=== PATIENT | male | born 2000 | race Hispanic/Latino ===

== ENCOUNTER 2021-10-06 02:40 | Emergency (ER) | payer SELFPAY ==
--- OUTSIDE RECORDS SUMMARY | 2021-10-06 02:44 | XMS REPORT | Continuity of Care Document ---
:2000 Author Organization [facility] t Address [address] [place] [address] Care Team Providers Name Role Phone Alyson Attending Clinician Unavailable Payers Payer Name Policy Type Policy Number Effective Date Expiration Date S ource Problems This patient has no known problems. Allergies, Adverse Reactions, Alerts This patient has no known allergies or adverse reactions. Medications This patient has no known medications. Procedures This patient has no known procedures. Encounters Start End Encounter Admission Attending Care Care Encounter Source Date/Time Date/Time Type Type Clinicians Facility Department ID 2021-05-19 2021-05-19 Outpatient R HAWA Shields [facility] [id number] [facility] 14:02:00 14:03:00 Staci [id number] 2021-05-15 2021-05-[address] [facility] [id number] 00:00:00 00:00:00 Staci [id number] Komal Trevizo Results Test Description Test Time Test Comments Results Result Comments Source CT Sinuses WO Con Keaton e: PATRIZIA KATE : 2000 Sex: M CH I [facility] [place] [place] Pt Name: PATRIZIA KATE [address] [facility] Phys: [place] [address] : 2000 Age: 21 SEX:M Exam Date: 05/19/21 Status: REG CLI Acct: [id number] Loc: [facility] Pt Unit #: [id number] Report #: [id number] CC: AlysonStaci pittman DO CAT SCAN REPORT Order # Category/Exam [id number] CT/CT Sinuses WO Con ([id number]): . Results EXAM: CT sinuses without contrast: INDICATIONS: Follow-up right sphenoid lesion COMPARISON: MRI brain 05/08/2021 FINDINGS: Paranasal sinuses are well aerated and are clear. No paranasal sinus mucosal disease. Mastoid air cells are clear. There is a lucent lesion involving the right sphenoid which corresponds to the area of high T2 signal seen on MRI. 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 Dr. Lee reviewed exam and is in agreement. 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 Reported By: Corey Allen MD Electronically Signed Date/Time: 05/19/21 9589 Technologist: IVA Dictated Date/Time: 05/19/21 1446 Transcribed Date/Time:
--- NOTE | 2021-10-06 05:03 | ER ---
Nurse's Notes [facility] Name: Colten Gómez Age: 21 yrs Sex: Male : 2000 Arrival Date: 10/06/2021 Time: 02:45 Bed 8 Private MD: Diagnosis: Headache Presentation: 10/06 02:58 Chief complaint: Patient states: HEADACHE THAT STARTED AT 1AM, HE ADMITS TO HAVING [facility] THESE HEADACHES FOR QUITE SOME TIME NOW. Coronavirus screen: Vaccine status: Patient reports being unvaccinated. headache. Ebola Screen: Patient negative for fever greater than or equal to 101.5 degrees Fahrenheit, and additional compatible Ebola Virus Disease symptoms. Initial Sepsis Screen: Does the patient meet any 2 criteria? No. Patient's initial sepsis screen is negative. Does the patient have a suspected source of infection? No. Patient's initial sepsis screen is negative. Risk Assessment: Do you want to hurt yourself or someone else? Patient reports no desire to harm self or others. Onset of symptoms was October 06, 2021. 02:58 Method Of Arrival: Ambulatory [facility] 02:58 Acuity: MIGUE 4 [facility] Triage Assessment: 03:00 Headache History: The patient has had previous headaches and this one is similar to [facility] previous episodes. General: Appears in no apparent distress. uncomfortable, Behavior is calm, cooperative, appropriate for age. Pain: Complains of pain in face Pain currently is 6 out of 10 on a pain scale. Pain began 2 hours ago. Also complains of no other associated symptoms. Neuro: No deficits noted. Historical: - Allergies: 03:00 NKDA; [facility] - Home Meds: 03:00 None [Active]; [facility] - PMHx: 03:00 None; [facility] - Immunization history:: Adult Immunizations up to date. - Social history:: Smoking status: Patient denies any tobacco usage or history of. Screenin:38 Abuse screen: Denies threats or abuse. Denies injuries from another. Nutritional kd3 screening: No deficits noted. Tuberculosis screening: No symptoms or risk factors identified. 03:40 Fall Risk None identified. kd3 Assessment: 03:38 General: Appears in no apparent distress. Behavior is calm, cooperative. Pain: kd3 Complains of pain in headache. Neuro: Level of Consciousness is awake, alert, obeys commands, Oriented to person, place, time, situation. Respiratory: Airway is patent Trachea midline Respiratory effort is even, unlabored. 03:58 Reassessment: Patient states feeling better. Pain: Pain currently is 2 out of 10 on a as6 pain scale. Vital Signs: 02:58 BP 139 / 69; Pulse 68; Resp 18; Temp 98.2; Pulse Ox 100% on R/A; Weight 82.1 kg; Height [facility] 5 ft. 8 in. (172.72 cm); Pain 6/10; 03:58 BP 124 / 81; Pulse 70; Resp 18 S; Pulse Ox 100% on R/A; as6 05:08 BP 125 / 71; Pulse 66; Resp 20 S; Pulse Ox 100% on R/A; as6 02:58 Body Mass Index 27.52 (82.10 kg, 172.72 cm) 1 ED Course: 02:45 Patient arrived in ED. ja2 03:00 Triage completed. 1 03:00 Arm band placed on right wrist. 1 03:02 Candace Cha, LYNDSAY is Primary Nurse. kd3 03:02 Primary Nurse role handed off by Candace Cha RN as6 03:02 Dwaine Alanis RN is Primary Nurse. as6 03:07 Kev White MD is Attending Physician. kdr 03:40 Patient has correct armband on for positive identification. kd3 03:47 CT Head Brain wo Cont In Process Unspecified. EDMS 05:08 No provider procedures requiring assistance completed. Patient did not have IV access as6 during this emergency room visit. Administered Medications: No medications were administered Medication: 03:40 VIS not applicable for this client. kd3 Outcome: 05:02 Discharge ordered by . kdr 05:08 Discharged to home ambulatory. as6 05:08 Condition: stable 05:08 Discharge instructions given to patient, Instructed on discharge instructions, follow up and referral plans. Demonstrated understanding of instructions, follow-up care. 05:18 Patient left the ED. as6 Signatures: Dispatcher [employer] EDMS Kev White MD MD kdr Alexander, Jessica 2 Dwaine Alanis, LYNDSAY RN as6 Candace Cha RN RN 3 Deena Fitzpatrick RN RN bh1
--- NOTE | 2021-10-06 05:04 | EDPHYS ---
Physician Documentation [facility] Name: Colten Gómez Age: 21 yrs Sex: Male : 2000 Arrival Date: 10/06/2021 Time: 02:45 Bed 8 Private MD: ED Physician Kev White HPI: 10/06 04:25 This 21 yrs old Male presents to ER via Ambulatory with complaints of kdr Headache, Neck Problem. 04:25 The patient complains of pain to the forehead. The patient describes the headache as kdr aching, intermittent, a pressure. Onset: The symptoms/episode began/occurred suddenly, this morning. Associated signs and symptoms: The patient has no apparent associated signs or symptoms. Severity of symptoms: At its worst the pain was moderate, severe, just prior to arrival, in the emergency department the pain has improved, markedly. Headache History: The patient has had previous headaches and this one is similar to previous episodes, and this one is more severe than previous episodes. The symptoms are alleviated by nothing. the symptoms are aggravated by nothing. The patient has experienced similar episodes in the past, multiple times, Patient has had intermittent headaches since the first of the year. He states it normally does come and go. He states that he has headaches nearly every day. It was more persistent and severe. He denies any associated symptoms including photophobia, tinnitus, vertigo, other concerning symptoms patient is nontoxic in the ED. The patient has not recently seen a physician. Historical: - Allergies: 03:00 NKDA; bh1 - Home Meds: 03:00 None [Active]; bh1 - PMHx: 03:00 None; 1 - Immunization history:: Adult Immunizations up to date. - Social history:: Smoking status: Patient denies any tobacco usage or history of. ROS: 04:25 Constitutional: Negative for fever, chills, and weight loss, Eyes: Negative for injury, kdr pain, redness, and discharge, ENT: Negative for injury, pain, and discharge, Cardiovascular: Negative for chest pain, palpitations, and edema, Respiratory: Negative for shortness of breath, cough, wheezing, and pleuritic chest pain, Abdomen/GI: Negative for abdominal pain, nausea, vomiting, diarrhea, and constipation, Back: Negative for injury and pain, : Negative for injury, bleeding, discharge, and swelling. 04:25 Eyes: Negative for acute changes, blurry vision, discharge, foreign body sensation, icterus, injury or acute deformity, itching, matting, pain, photophobia, redness, sunken appearance, swelling, tearing, vision loss, visual disturbance. 04:25 Neck: Positive for pain at rest, of the face and right lateral aspect of neck. Exam: 04:25 Constitutional: This is a well developed, well nourished patient who is awake, alert, kdr and in no acute distress. Head/Face: Normocephalic, atraumatic. Eyes: Pupils equal round and reactive to light, extra-ocular motions intact. Lids and lashes normal. Conjunctiva and sclera are non-icteric and not injected. Cornea within normal limits. Periorbital areas with no swelling, redness, or edema. Neck: Trachea midline, no thyromegaly or masses palpated, and no cervical lymphadenopathy. Supple, full range of motion without nuchal rigidity, or vertebral point tenderness. No Meningismus. Chest/axilla: Normal chest wall appearance and motion. Nontender with no deformity. No lesions are appreciated. Cardiovascular: Regular rate and rhythm with a normal S1 and S2. No gallops, murmurs, or rubs. Normal PMI, no JVD. No pulse deficits. Respiratory: Lungs have equal breath sounds bilaterally, clear to auscultation and percussion. No rales, rhonchi or wheezes noted. No increased work of breathing, no retractions or nasal flaring. Back: No spinal tenderness. No costovertebral tenderness. Full range of motion. Skin: Warm, dry with normal turgor. Normal color with no rashes, no lesions, and no evidence of cellulitis. MS/ Extremity: Pulses equal, no cyanosis. Neurovascular intact. Full, normal range of motion. Neuro: Awake and alert, GCS 15, oriented to person, place, time, and situation. Cranial nerves II-XII grossly intact. Motor strength 5/5 in all extremities. Sensory grossly intact. Cerebellar exam normal. Normal gait. Psych: Awake, alert, with orientation to person, place and time. Behavior, mood, and affect are within normal limits. Vital Signs: 02:58 BP 139 / 69; Pulse 68; Resp 18; Temp 98.2; Pulse Ox 100% on R/A; Weight 82.1 kg; Height [facility] 5 ft. 8 in. (172.72 cm); Pain 6/10; 03:58 BP 124 / 81; Pulse 70; Resp 18 S; Pulse Ox 100% on R/A; as6 05:08 BP 125 / 71; Pulse 66; Resp 20 S; Pulse Ox 100% on R/A; as6 02:58 Body Mass Index 27.52 (82.10 kg, 172.72 cm) [facility] MDM: 04:25 Data reviewed: vital signs, nurses notes, lab test result(s). kdr 05:02 Patient medically screened. kdr 10/06 03:22 Order name: CT Head Brain wo Cont kdr Administered Medications: No medications were administered Disposition Summary: 10/06/21 05:02 Discharge Ordered Location: Home kdr Problem: an acute exacerbation kdr Symptoms: have improved kdr Condition: Stable kdr Diagnosis - Headache kdr Followup: kdr - With: Private Physician - When: 2 - 3 days - Reason: If symptoms return, Further diagnostic work-up, Recheck today's complaints, Continuance of care, Re-evaluation by your physician Discharge Instructions: - Discharge Summary Sheet kdr - General Headache Without Cause, [id number] kdr Forms: - Medication Reconciliation Form kdr - Thank You Letter kdr Signatures: Dispatcher [employer] Kev Alonso MD MD kdr Deena Fitzpatrick RN RN 1
[2021-10-06 05:23] VITALS: TEMP 98.2; O2SAT 100
[2021-10-06 05:26] VITALS: BP 125/71
--- NOTE | 2021-10-06 10:13 | RAD REPORT ---
EXAM DESCRIPTION: CT Head/Brain Without Contrast CLINICAL HISTORY: Headache, tension-type COMPARISON: None. TECHNIQUE: Head/brain axial images acquired without contrast. Coronal and sagittal reformats created . Exam performed according to departmental dose-optimization program which includes automated exposur e control, adjustment of mA and/or kV according to patient size, and/or use of iterative reconstructi on technique. FINDINGS: No midline shift, mass effect, intracranial hemorrhage, or hydrocephalus. Brain parenchyma unremarkable. Paranasal sinuses clear. Mastoid air cells clear. No skull fracture or significant skull lesion. IMPRESSION: Unremarkable CT head/brain without contrast. Electronically signed by: Rj Lovelace MD 10/06/2021 4:35 AM CDT Due to temporary technical issues with the PACS/Fluency reporting system, reports are being signed by the in house radiologists without review as a courtesy to insure prompt reporting. The interpreting radiologist is fully responsible for the content of the report.
== END 2021-10-06 05:18 | disposition home or self-care (01) ==
LOC: ER 02:40
DX: R51.9 Headache, unspecified (principal)
CPT/HCPCS: 70450; 99283